=== PATIENT | male | born 1965 | race Caucasian/White ===

== ENCOUNTER 2016-10-07 19:07 | Emergency (ER) | payer OTHER ==
[2016-10-07 19:28] VITALS: BP 120/85; PULSE 116; RESP 16; TEMP 100.4; O2SAT 94
--- NOTE | 2016-10-07 19:28 | UCPHY ---
H & P Time Seen by Provider: 10/07/16 19:24 Patient Type: New HPI/ROS: CHIEF COMPLAINT: Fever, myalgia. HISTORY OF PRESENT ILLNESS: The patient is a 50-year-old male who presents with fever, mild sore throat, and myalgia since yesterday morning. He denies cough, abdominal pain, diarrhea, chest pain, lymphadenopathy, wheezing. He denies recent sick contact. No recent travel. His temperature is 38.0 on arrival. He did get a flu shot this year. He does have a history of pneumonia but reports this does not feel the same. He has had some rhinorrhea but no substantial postnasal drip. REVIEW OF SYSTEMS: Constitutional: As above. Eyes: No discharge ENT: No sore throat. Cardiovascular: No chest pain, no palpitations. Respiratory: No shortness of breath, no wheezing. Gastrointestinal: No nausea vomiting or diarrhea. No abdominal pain. Genitourinary: No hematuria or frequency. Musculoskeletal: No back pain. Skin: No rashes. Neurological: Mild headache 10 point ROS otherwise negative Past Medical/Surgical History: Hypothyroidism, hypercholesterolemia. 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 Smoking Status: Never smoked Physical Exam: General Appearance: Alert, no distress. Febrile at 38.0. Normal phonation. No respiratory distress. Eyes: Pupils equal and round no pallor or injection. No icterus ENT, Mouth: Mucous membranes moist. Pharynx not erythematous and without exudate. TM Clear. Sinuses nontender to palpation. Neck: No adenopathy. Supple. No JVD. Trachea in midline. Respiratory: There are no retractions, lungs are clear to auscultation. Cardiovascular: Regular rate and rhythm - no murmur Psychiatric: Normal affect Constitutional: Initial Vital Signs Temperature (C) 38 C 10/07/16 19:22 Heart Rate 116 H 10/07/16 19:22 Respiratory Rate 16 10/07/16 19:22 Blood Pressure 120/85 H 10/07/16 19:22 O2 Sat (%) 94 10/07/16 19:22 O2 Delivery Mode Room Air Allergies/Adverse Reactions: No Known Allergies Allergy (Verified 10/07/16 19:21) Home Medications: Medication Instructions Recorded Levothyroxine [Synthroid 25 mcg 25 mcg PO DAILY06 12/19/13 (*)] Benzonatate 200 mg PO TID PRN #28 capsule 10/07/16 Lipitor 10/07/16 Medical Decision Making - Diagnostics Imaging: Chest x-ray. Viewed by myself in PACS system. Radiology's interpretation of the images is: bronchitis, no definite pneumonia. ED Course/Re-evaluation: Flu swab obtained and sent to the lab - as this ultimately came back negative the patient did concur with the plan for chest x-ray.. Patient negative for flu. Chest x-ray ordered. Films reviewed by me. Negative for pneumonia. At this juncture the clinical exam seems to be that of URI with influenza like illness. Certainly no indication at this time for Tamiflu. We have discussed this with patient at length. I am concerned that he is contagious any stay home from work, expect complete resolution in for 5 days Differential Diagnosis: Diagnostic considerations include, but are not limited to, the following: URI, sinusitis, pharyngitis, otitis media, pneumonia, allergy, or influenza - Data Points Laboratory Results: 10/07/16 20:15 Influenza Typ A,B (DFA) NEGATIVE FOR FLU (NEGATIVE) Departure - Departure Disposition: Home, Routine, Self-Care Clinical Impression: URI, acute, Influenza-like illness Condition: Good Instructions: Fever in Adults (ED), Upper Respiratory Infection (ED) Additional Instructions: Drink plenty of fluids and be sure to get rest. Your contagious come should not work until 24 hours after last recorded fever elevation Delsym [id number] for tsp twice daily works well for cough or use the benzonatate as needed. Adult Pain & Fever Control: We recommend Acetaminophen (Tylenol) and Ibuprofen (Motrin,Advil) for pain and fever control. When fever is high or pain severe, both drugs can be used at the same time, but at different intervals. Please note the time differences. Your dose is: Acetaminophen 650mg every 4 to 6 hours Ibuprofen 600mg every 6-8 hours with food. Note: do not take Acetaminophen with Hydrocodone (Vicodin, Lortab) or Oycodone (Percocet). These medications also contain Acetaminophen. No more than 3000mg of Acetaminophen should be taken in 24 hours (for an adult). Follow up with your primary care provider in the next 3-4 days if symptoms are not improving. Return to Urgent Care or the emergency department for serious worsening of condition. Referrals: Marcos Bangura MD [Primary Care Provider] - As per Instructions Prescriptions: Benzonatate 200 mg PO TID PRN #28 capsule PRN Reason: Cough, Moderate - PQRS PQRS Measurement: Not applicable Report Scribed for: Imer Martinez Report Scribed by: Chalo Johnson Date of Report: 10/07/16 Time of Report: 19:28
--- NOTE | 2016-10-07 20:45 | DX ---
Chest, Two Views at 2037 hours History: Cough. Comparison: May 2016 Findings: Cardiac silhouette is within normal range. Bilateral peribronchial thickening. No pneumonia , congestive heart failure, pleural effusion, or pneumothorax. Impression: 1. Bronchitis. 2. No definite focal pneumonia.
== END 2016-10-07 21:41 | disposition home or self-care (01) ==
LOC: CED 19:07
DX: J06.9 Acute upper respiratory infection, unspecified (principal); E03.9 Hypothyroidism, unspecified; E78.00 Pure hypercholesterolemia, unspecified
CPT/HCPCS: 71020-PO; 87400-PO; 99203-PO; G0463-PO